=== PATIENT | male | born 1950 | race Caucasian/White ===

== ENCOUNTER → 2020-01-15 20:59 | Outpatient (CLI) | payer MEDICARE, OTHER ==
[2016-05-03 06:46] VITALS: BMI 35.3
[~2020-01-15 20:59] MED LIST: CARDIOTEK RX TA1 TA1 PO; COZAAR50 MG PO; EXCEDRIN EXTRA1 TAB PO; GLUCOPHAGE1000 MG PO; LODOSYN25 MG PO; LOVAZA1 G PO; METANX PO; NEURONTIN800 MG PO; OMEPRAZOLE20 M1 PO; RAPAFLO8 MG PO; TEMAZEPAM30 MG PO; VITAMIN D5000 UNIT PO
== END | disposition home or self-care (01) ==
LOC: D.LABREF 20:59
PROVIDERS: ATTEND Otolaryngology
DX: J32.4 Chronic pansinusitis (principal)